=== PATIENT | male | born 2000 | race Native Hawaiian/Other Pacific Islander ===

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

== ENCOUNTER 2020-05-29 13:18 | Emergency (ER) | payer OTHER ==
[~2020-05-29] VITALS: Ht 170.2 cm; Wt 65.8 kg
[2020-05-29 13:34] VITALS: TEMP 98.3
[2020-05-29 15:17] VITALS: BP 108/59
== END 2020-05-29 15:17 | disposition home or self-care (01) ==
LOC: ED 13:18
DX: J02.0 Streptococcal pharyngitis (principal); Z20.828 Contact with and (suspected) exposure to other viral communicable diseases; F17.210 Nicotine dependence, cigarettes, uncomplicated
CPT/HCPCS: 87502; 87635; 87651; 96372; 99283; J0696; J2930; U0003

== ENCOUNTER 2021-05-29 09:41 | Emergency (ER) | payer OTHER ==
[~2021-05-29] VITALS: Ht 170.2 cm; Wt 65.8 kg
[2021-05-29 09:49] VITALS: BP 123/67; TEMP 97.5
== END 2021-05-29 11:46 | disposition home or self-care (01) ==
LOC: ED 09:41
DX: S20.211A Contusion of right front wall of thorax, initial encounter (principal); Y04.2XXA Assault by strike against or bumped into by another person, initial encounter; Y92.89 Other specified places as the place of occurrence of the external cause
CPT/HCPCS: 96372; 99283; J1885